=== PATIENT | female | born 2000 | race Caucasian/White ===

== ENCOUNTER 2020-07-29 13:43 | Emergency (ER) | payer OTHER ==
[~2020-07-29] VITALS: Ht 165.1 cm; Wt 51.0 kg
[2020-07-29 14:04] VITALS: BP 130/79
== END 2020-07-29 14:57 | disposition home or self-care (01) ==
LOC: ER 13:43
DX: R55 Syncope and collapse (principal); T50.B95A Adverse effect of other viral vaccines, initial encounter; R03.0 Elevated blood-pressure reading, without diagnosis of hypertension; Y92.29 Other specified public building as the place of occurrence of the external cause
CPT/HCPCS: 93005; 99283